=== PATIENT | female | born 1970 | race Caucasian/White ===

== ENCOUNTER 2017-03-08 10:58 | Emergency (ER) | payer BC ==
[~2017-03-08] VITALS: Ht 160 cm; Wt 109.3 kg
[2017-03-08] MEDS ORDERED: IV NORMAL SALINE 500ML BAG 500 ML IV ONE (11:15)
[2017-03-08] MEDS ORDERED: methylPREDNISolone SOD SUCC PF 125 MG/2 ML VIAL. IV ONE (11:15)
[2017-03-08] MEDS ORDERED: FAMOTIDINE 20 MG/2 ML VIAL IVP ONE (11:15)
[2017-03-08] MEDS ORDERED: diphenhydrAMINE 50 MG/ML VIAL IV ONE (11:15)
[2017-03-08] MEDS ORDERED: EPINEPHrine 1 MG/ML VIAL IM ONE (11:15)
[2017-03-08] MEDS ORDERED: EPIN0.3A8 IJ (11:40)
--- NOTE | 2017-03-08 11:40 | PHYS DOC ---
Past Medical History Past Medical History: No Pertinent History Past Surgical History: , Tubal ligation, Other Additional Past Surgical Histo: lypoma removed on back Alcohol Use: None Drug Use: None Adult General Chief Complaint Chief Complaint: ALLERGIC REACTION HPI HPI 47-year-old female presenting to the emergency department today after being stung by a wasp in her left lower leg. She reports this happened around 1045 while at home. She has a history of being allergic to wasps and feels that her throat is swelling. She reports taking Benadryl prior to arrival. Patient constant. No alleviating or exacerbating factors. She denies having an epinephrine pen at home. Review of systems is negative for stridor or drooling or dyspnea chest pain abdominal pain fevers or chills. All other review of systems is negative unless otherwise noted in history of present illness. ED course: 47-year-old female presenting to the emergency department today with anaphylaxis. Patient was given intramuscular epinephrine along with histamine blocking agents and corticosteroids. On initial examination the patient did not appear to be in respiratory distress. No stridor on examination. No swelling of the tongue or lips. No objective evidence of airway involvement. The patient does describe mild swelling in her throat. On reexamination the patient was feeling much better. This occurred around 11:45 AM. The patient was then monitored on telemetry given the administration of epinephrine and subsequently discharged home to follow up with her primary care physician. She was discharged with an epinephrine pen to go home with. The patient was then discharged home in stable condition to follow up with their primary care physician over the next 2-3 days. They were to return if their symptoms worsened or if they were concerned for any reason. [id number] discharge instructions and return precautions were given. Patient's questions were answered to their satisfaction. Patient is comfortable plan. Review of Systems Review of Systems SEE ABOVE. Current Medications Current Medications Current Medications Medications (Trade) Dose Ordered Sig/Adrian Start Time Stop Time Status Last Admin Dose Admin Diphenhydramine HCl (Benadryl) 25 mg 1X ONCE 03/08/17 11:15 03/08/17 11:20 DC 03/08/17 11:29 25 MG Epinephrine HCl (Adrenalin) 0.3 mg 1X ONCE 03/08/17 11:15 03/08/17 11:20 DC 03/08/17 11:29 0.3 MG Famotidine (Pepcid) 20 mg 1X ONCE 03/08/17 11:15 03/08/17 11:20 DC 03/08/17 11:29 20 MG Methylprednisolone Sodium Succinate (SOLU-Medrol 125MG VIAL) 125 mg 1X ONCE 03/08/17 11:15 03/08/17 11:20 DC 03/08/17 11:29 125 MG Sodium Chloride 500 ml @ 500 mls/hr 1X ONCE 03/08/17 11:15 03/08/17 12:14 DC 03/08/17 11:28 500 MLS/HR Allergies Allergies Allergies Uncoded Allergies Type Severity Reaction Last Updated Verified Wasp Allergy Severe Anaphylaxis 03/08/17 Physical Exam Physical Exam SEE ABOVE Constitutional: Well developed, well nourished, no acute distress, non-toxic appearance. [] HENT: Normocephalic, atraumatic, bilateral external ears normal, oropharynx moist, no oral exudates, nose normal. [] Eyes: PERRLA, EOMI, conjunctiva normal, no discharge. [] Neck: Normal range of motion, no tenderness, supple, no stridor. [] Cardiovascular:Heart rate regular rhythm, no murmur [] Lungs & Thorax: Bilateral breath sounds clear to auscultation [] Abdomen: Bowel sounds normal, soft, no tenderness, no masses, no pulsatile masses. [] Skin: Warm, dry, no erythema, no rash. [] Back: No tenderness, no CVA tenderness. [] Extremities: No tenderness, no cyanosis, no clubbing, ROM intact, no edema. [] Small bee sting on the left thigh. Minimal erythema around the sting. Neurologic: Alert and oriented X 3, normal motor function, normal sensory function, no focal deficits noted. [] Psychologic: Affect normal, judgement normal, mood normal. [] Current Patient Data Vital Signs Vital Signs Date Time Temp Pulse Resp B/P (MAP) Pulse Ox O2 Delivery O2 Flow Rate FiO2 03/08/17 12:49 78 16 163/72 (102) 98 Room Air 03/08/17 11:08 98.8 98.8 Lab Values Laboratory Tests Test 03/08/17 10:14 POC Urine HCG, Qualitative Hcg negative (Negative) EKG EKG [] Radiology/Procedures Radiology/Procedures [] Course & Med Decision Making Course & Med Decision Making Pertinent Labs and Imaging studies reviewed. (See chart for details) [] Dragon Disclaimer Dragon Disclaimer This electronic medical record was generated, in whole or in part, using a voice recognition dictation system. Departure Departure Impression: Primary Impression: Anaphylaxis Disposition: 01 HOME, SELF-CARE Condition: STABLE Referrals: TAMMI JO MD Patient Instructions: Anaphylactic Reaction, [id number] Additional Instructions: Thank you for allowing us to participate in your care today. Followup with your primary care physician in 3 days if your symptoms do not improve. Call your Primary Doctor tomorrow and inform them of your visit today. If you do not have a primary care provider you can ask for a list of our primary care providers. Return to the emergency department you have any new or concerning findings. This should be evaluated by the primary care physician and any necessary consulting services for continued management within a few days after discharge. Return to emergency room if you have any new or concerning symptoms including but not limited to fever, chills, nausea, vomiting, intractable pain, any new rashes, chest pain, shortness of air, uncontrolled bleeding, difficulty breathing, and/or vision loss. Scripts Epinephrine (EPINEPHRINE) 0.3 Mg/0.3 Ml Auto.injct 0.3 MG IJ PRN Y for ANAPHYLAXIS, #1 Prov: CHADD BHAGAT MD 03/08/17 CHADD BHAGAT MD Mar 08, 2017 11:40
[2017-03-08 12:49] VITALS: BP 163/72
== END 2017-03-08 13:17 | disposition home or self-care (01) ==
LOC: ER 10:58
DX: T63.461A Toxic effect of venom of wasps, accidental (unintentional), initial encounter (principal); T78.2XXA Anaphylactic shock, unspecified, initial encounter; Y92.89 Other specified places as the place of occurrence of the external cause; Z98.51 Tubal ligation status; Z91.048 Other nonmedicinal substance allergy status
CPT/HCPCS: 81025; 96361; 96372; 96374; 96375; 99284; J0171; J1200; J2930; J7040; S0028

== ENCOUNTER 2017-10-30 13:23 | Emergency (ER) | payer OTHER, BC ==
[2017-10-30] MEDS: DIPHTH,PERTUSS(ACELL),TET TOX 0.5 ML DISP.SYRIN. VAX IM (13:49)
[2017-10-30] MEDS: LIDOCAINE WITH 8.4% SOD BICARB 3 ML DISP.SYRIN. INJ (13:50)
== END 2017-10-30 14:45 | disposition home or self-care (01) ==
LOC: ER 14:45
DX: S61.216A Laceration without foreign body of right little finger without damage to nail, initial encounter (principal); Z91.038 Other insect allergy status; W20.8XXA Other cause of strike by thrown, projected or falling object, initial encounter; Y93.89 Activity, other specified; Y99.8 Other external cause status; Y92.89 Other specified places as the place of occurrence of the external cause
CPT/HCPCS: 12001; 73140; 90471; 90715; 99284-25

== ENCOUNTER → 2019-03-31 | Outpatient (CLI) | payer OTHER ==
[2017-10-30 13:33] VITALS: BP 185/93
[~2019-03-31] MED LIST: EPIN0.3A8 IJ
--- NOTE | 2019-03-31 11:46 | KCIC ---
Bilateral diagnostic digital mammograms with 3-D tomosynthesis: Reason for examination: Bilateral lateral breast pain. History of bilateral breast reduction. No previous examinations for comparison. Bilateral mammograms in CC and oblique projections were obtained with 2-D imaging and 3-D tomosynthesis imaging on a Siemens Inspiration unit and reviewed on the workstation. Interpretation was made with the benefit of CAD. The skin and nipples show no abnormalities. No abnormal axillary lymph nodes are seen. The breast parenchyma shows scattered fatty and fibroglandular density. (Breast density: Category B.) There appear to be small nodular parenchymal densities at approximately the 9:30 C and 6:00 B positions of the right breast and at the 2:30 C and 4:00 A positions of the left breast. Further evaluation with ultrasound will follow. There is some cystic fat necrosis in the subareolar 9:00 position of the left breast. There are no, suspicious calcifications. Impression: Small nodular parenchymal densities seen bilaterally. Ultrasound to follow. BI-RADS Category 0: Incomplete. Needs additional imaging evaluation. Bilateral breast ultrasound: Ultrasound examination was performed bilaterally with attention to the lateral breast and axilla. In the right breast at the 7:00 position 8 cm from the nipple, there is a small 5.7 mm hypoechoic fibrocystic type lesion present which would correspond to the area of mammographic concern. There is also a small intramammary lymph node with benign appearance in the 9:30 position 14 cm from the nipple measuring 1 cm in greatest dimension. No other cystic or solid nodules are seen. No abnormal appearing lymph nodes are seen in the right axilla. In the left breast, there are small hypoechoic nodules also probably fibrocystic measuring 8.8 mm in greatest dimension at the 4:00 position 3 cm from the nipple and measuring 6.3 mm at the 3:00 position 4 cm from the nipple. No evidence of discrete cystic or solid nodules are seen. No abnormal appearing lymph nodes are seen in the left axilla. IMPRESSION: Small benign-appearing hypoechoic fibrocystic type lesions bilaterally. Recommend reevaluation with bilateral breast ultrasound in 3 months. BI-RADS Category 3: Probably Benign. "Our facility is accredited by the [employer] Mammography Program." This patient's information has been entered into a reminder system for the patient to be notified with the results of her examination and a target date for the next mammogram. Electronically signed by: Dot Johnson MD (03/31/2019 11:43 AM) [id number]
== END | disposition home or self-care (01) ==
LOC: KCIC MAMMO 09:52
PROVIDERS: ATTEND Nurse Practitioner Family
DX: N63.20 Unspecified lump in the left breast, unspecified quadrant (principal)
CPT/HCPCS: 76641; 77066; G0279; 77062

== ENCOUNTER → 2019-06-21 | Outpatient (CLI) | payer OTHER ==
[2017-10-30 13:33] VITALS: BP 185/93
--- NOTE | 2019-06-21 08:58 | KCIC ---
Bilateral breast ultrasound: Reason for examination: Follow-up nodules. Comparison is made to previous study dated 03/31/2019. Bilateral breast ultrasound including the axillary regions of both breasts was performed. The right breast shows an intramammary lymph node at the 9:30 position 14 cm from the nipple measuring 1.1 cm in greatest dimension. There continues to be a small 3.9 mm fibrocystic lesion at the 7:00 position 8 cm from the nipple which has decreased in size. No other cystic or solid nodules are seen. No abnormal appearing lymph nodes are seen in the axilla. The left breast shows a fibrocystic lesion at the 4:00 position 3 cm from the nipple measuring 6.8 mm in greatest dimension which has decreased in size. There is a 4.8 mm hypoechoic fibrocystic lesion at the 3:00 position 4 cm from the nipple which has decreased in size. No new cystic or solid lesions are seen. No abnormal appearing lymph nodes are seen in the left axilla. IMPRESSION: Fibrocystic lesions seen bilaterally which have decreased in size. No suspicious abnormalities are seen. Recommend routine mammographic follow-up. BI-RADS Category 2: Benign. "Our facility is accredited by the [employer] Mammography [employer]." This patient's information has been entered into a reminder system for the patient to be notified with the results of her examination and a target date for the next mammogram. Electronically signed by: Dot Johnson MD (06/21/2019 8:55 AM) [id number]
== END | disposition home or self-care (01) ==
LOC: KCIC US 08:02
PROVIDERS: ATTEND Nurse Practitioner Family
DX: N64.89 Other specified disorders of breast (principal)
CPT/HCPCS: 76641